=== PATIENT | female | born 1960 | race Caucasian/White ===

== ENCOUNTER 2021-11-06 16:54 | Inpatient (IN) | payer OTHER ==
[~2021-11-06] VITALS: Ht 175.3 cm; Wt 65.8 kg
--- NOTE | 2021-11-06 16:59 | NUR ---
BIBA to bed 08
[2021-11-06] MEDS ORDERED: KETOROLAC 30 MG/ML VIAL IVP ONE (17:00)
[2021-11-06 17:01] VITALS: BP 148/84
--- NOTE | 2021-11-06 17:10 | NUR ---
PATIENT WAS ASSISTED TO THE RESTROOM VIA WHEELCHAIR. URINE SAMPLE OBTAINED.
--- NOTE | 2021-11-06 17:21 | NUR ---
PATIENT TAKEN TO IMAGING VIA WHEELCHAIR
--- NOTE | 2021-11-06 18:05 | NUR ---
Unable to obtain IV access; [address] Smith made aware and Toradol IM order to be placed.
[2021-11-06] MEDS ORDERED: KETOROLAC 60 MG/2 ML VIAL IM ONE (18:10)
--- NOTE | 2021-11-06 18:26 | NUR ---
61 Y/O FEMALE BIBA FROM [facility] C/O ABMONIAL PAIN X1 WEEK. PATIENT HAS A 6/10 SORENESS PAIN TO ABDOMEN PAIN TO RLQ. PATIENT DENIES NAUSEA AND VOMITING. PATIENT IS ALSO COMPLAINING OF SWELLING TO STOMACH. PATIENT STATES "HER LAST BOWEL MOVEMENT WAS 2-3 DAYS AGO." MEDICAL HISTORY: CVA 5 YEARS AGO, DM2, LIVER CIRRHOSIS, HLD, HTN MEDICATIONS: SEE LIST NKDA
[2021-11-06 18:31] LABS: BASOPHILS # (AUTO) 0.1 K/uL (0.00-0.22); BASOPHILS % (AUTO) 0.8 % (0.0-2.0); EOSINOPHILS # (AUTO) 0.1 K/uL (0-0.4); EOSINOPHILS % (AUTO) 1.7 % (0.0-4.0); HEMATOCRIT 39.7 % (36-48); HEMOGLOBIN 13.4 g/dL (12.0-16.0); LYMPHOCYTES # (AUTO) 1.6 K/uL (2.5-16.5); LYMPHOCYTES % (AUTO) 24.1 % (20.5-51.1); MEAN CORPUSCULAR HEMOGLOBIN 31 pg (27-31); MEAN CORPUSCULAR HGB CONC 34 g/dL (33-37); MEAN CORPUSCULAR VOLUME 90.9 fL (80-94); MONOCYTES # (AUTO) 0.5 K/uL (0.8-1.0); NEUTROPHILS # (AUTO) 4.3 K/uL (1.8-7.7); NEUTROPHILS % (AUTO) 65.4 % (42.2-75.2); PLATELET COUNT (AUTO) 122 K/uL (140-450); RED BLOOD CELL COUNT(AUTO) 4.37 MIL/uL (4.20-5.40); RED CELL DISTRIBUTION WIDTH 13.7 % (11.6-13.7); WHITE BLOOD COUNT (AUTO) 6.6 K/uL (4.8-10.8)
--- NOTE | 2021-11-06 18:40 | NUR ---
SHILPI SPECIMEN OBTAINED, WALKED TO LAB. HANDED TO PARISH, CPT
[2021-11-06 18:41] LABS: ALBUMIN 3.1 g/dL (3.4-5.0); ANION GAP 10.4 (8-16); CARBON DIOXIDE 28.2 mmol/L (21-32); CREATININE 1.6 mg/dL (0.6-1.3); POTASSIUM 4.6 mmol/L (3.5-5.1); TOTAL BILIRUBIN 0.3 mg/dL (0.0-1.0)
[2021-11-06] MEDS ORDERED: AMIT25TA40 PO (18:50)
[2021-11-06] MEDS ORDERED: METO25TA PO (18:50)
[2021-11-06] MEDS ORDERED: LANTUS SUBQ (18:50)
[2021-11-06] MEDS ORDERED: TRAM50TA3 PO (18:50)
[2021-11-06] MEDS ORDERED: MIRABULK PO (18:50)
[2021-11-06] MEDS ORDERED: ATOR40TA PO (18:50)
[2021-11-06] MEDS ORDERED: TEMA15CA24 PO (18:50)
[2021-11-06] MEDS ORDERED: DIT5 PO (18:50)
[2021-11-06] MEDS ORDERED: DOCU-299 PO (18:50)
[2021-11-06] MEDS ORDERED: GABA400C PO (18:50)
[2021-11-06] MEDS ORDERED: [UNRECOGNIZED DRUG - CODE] RC (18:50)
[2021-11-06] MEDS ORDERED: ACET-10509 PO (18:50)
[2021-11-06] MEDS ORDERED: LACT10SO11 (18:50)
[2021-11-06] MEDS ORDERED: BACL10TA4 PO (18:50)
[2021-11-06] MEDS ORDERED: SENN-72 PO (18:52)
[2021-11-06] MEDS ORDERED: ASPI-1822 PO (18:52)
[2021-11-06] MEDS ORDERED: BISA-218 RC (18:52)
--- NOTE | 2021-11-06 19:22 | NUR ---
Pt report given to RASHARD LACY. Transfer of care at this time.
--- NOTE | 2021-11-06 19:22 | NUR ---
Texted PICC RN [phone] regarding PICC placement for pt. Texted back, stated that they do not have PICC RN for this evening, so PICC insertion will be delayed until tomorrow morning. Will let technical marketing engineer know
--- NOTE | 2021-11-06 19:34 | NUR ---
VERBAL ORDER FOR PICC LINE PLACEMENT BY DR. PEREZ. NOTIFIED DEV DOWNS SUP.
--- NOTE | 2021-11-06 20:18 | NUR ---
CONSENT FOR ULTRA SOUND SIGNED. PT UNABLE TO WRITE A CLEAR SIGNATURE BUT ACKNOWLEDGED AND MARKED. WITNESS SIGNATURE OBTAINED
--- NOTE | 2021-11-06 20:37 | NUR ---
Patient will be admitted to care of DR. RASMUSSEN. Admited to MED- SURG. Will go to room 121 B. Belongings list completed. Report to [place].
[2021-11-06] MEDS ORDERED: KCL 20 MEQ/WATER INJ PREMIX 200 ML IV PRN (20:40)
[2021-11-06] MEDS ORDERED: MAG SULF 2000 MG/WATER PREMIX 50 ML IV PRN (20:40)
[2021-11-06] MEDS ORDERED: HYDROcodone/APAP 5/325 MG 1 TAB TAB PO PRN (20:40)
[2021-11-06] MEDS ORDERED: ACETAMINOPHEN 325 MG TAB PO PRN (20:40)
[2021-11-06] MEDS ORDERED: ONDANSETRON 4 MG/2 ML VIAL IVP PRN (20:40)
[2021-11-06] MEDS ORDERED: MAGNESIUM OXIDE 400 MG TAB PO PRN (20:40)
[2021-11-06] MEDS ORDERED: ZOLPIDEM 5 MG TAB PO PRN (20:40)
[2021-11-06] MEDS ORDERED: POTASSIUM CHLORIDE 10 MEQ TABER PO PRN (20:40)
[2021-11-06] MEDS ORDERED: MORPHINE SULFATE 4 MG/ML SYR IVP PRN (20:40)
[2021-11-06] MEDS ORDERED: LORazepam 1 MG TAB PO PRN (20:40)
[2021-11-06 21:30] VITALS: BP 124/72
[2021-11-06] MEDS: NACL 0.9% 1,000 ML IV SCH (21:30)
--- NOTE | 2021-11-06 21:30 | NUR ---
RECEIVED HAND OFF BEDSIDE REPORT FROM ER RASHARD LACY ON NEW ADMISSION. ARRIVED ON MST VIA GURNEY TRANSFERRED TO W/C THEN TO BED WITH WALKER AND STANDBY ASSIST OF TWO. PT HAS GENERALIZED WEAKNESS AND VISION, MEMORY AND MUSCULOSKELETAL WEAKNESSES RESIDUAL FROM STROKE 5 YRS AGO. VSS: BP- 124/72, P-88, RR-18, T-97.7, [id number]% ON ROOM AIR. ALL SAFETY MEASURES IN PLACE. CALL LIGHT WITHIN REACH. WILL CONTINUE TO MONITOR
[2021-11-07] VITALS: BP 115/75
--- NOTE | 2021-11-07 01:30 | NUR ---
FREQ ROUNDS. PT SLEEPING RR EVEN AND UNLABORED WITH EQUAL CHEST RISE. SCD'S ON ORDERED.NO C/O PAIN. CALL LIGHT WITHIN REACH WILL CONTINUE TO MONITOR.
[2021-11-07 04:00] VITALS: BP 98/67
--- NOTE | 2021-11-07 04:20 | NUR ---
FREQ ROUNDS. PT SLEEPING . AWAKENED TO NAME VSS: BP-98/67, P-72, RR-18, T-97.9, O4YFS=66% 0N ROOM AIR. SCD'S ON PT'S LOWER EXTREMITIES ORDERED. PT TRANSFERRED TO BEDSIDE COMMODE BUT COULD NOT URINATE. C/O 12/11 RLQ PAIN WITH SWELLING. MEDICATED WITH 1 TAB NORCO5/325MG. PT SELF TURNS IN BED. HAS MULTIPLE OLD LOWER EXTREMITY SCARS. DOZING. ALL SAFETY MEASURES IN PLACE. CALL LIGHT WITHIN REACH. WILL CONTINUE TO MONITOR.
[2021-11-07 06:03] LABS: BASOPHILS % (AUTO) 0.8 % (0.0-2.0); EOSINOPHILS # (AUTO) 0.1 K/uL (0-0.4); EOSINOPHILS % (AUTO) 2.2 % (0.0-4.0); HEMATOCRIT 37.3 % (36-48); HEMOGLOBIN 12.7 g/dL (12.0-16.0); LYMPHOCYTES # (AUTO) 1.8 K/uL (2.5-16.5); LYMPHOCYTES % (AUTO) 34.2 % (20.5-51.1); MEAN CORPUSCULAR HEMOGLOBIN 31 pg (27-31); MEAN CORPUSCULAR HGB CONC 34 g/dL (33-37); MONOCYTES # (AUTO) 0.5 K/uL (0.8-1.0); MONOCYTES % (AUTO) 9.6 % (1.7-9.3); NEUTROPHILS # (AUTO) 2.9 K/uL (1.8-7.7); NEUTROPHILS % (AUTO) 53.2 % (42.2-75.2); PLATELET COUNT (AUTO) 105 K/uL (140-450); RED BLOOD CELL COUNT(AUTO) 4.15 MIL/uL (4.20-5.40); RED CELL DISTRIBUTION WIDTH 13.3 % (11.6-13.7); WHITE BLOOD COUNT (AUTO) 5.4 K/uL (4.8-10.8)
[2021-11-07 06:09] LABS: ALBUMIN 2.8 g/dL (3.4-5.0); ANION GAP 7.4 (8-16); CARBON DIOXIDE 26.6 mmol/L (21-32); CREATININE 1.8 mg/dL (0.6-1.3); TOTAL BILIRUBIN 0.4 mg/dL (0.0-1.0)
--- NOTE | 2021-11-07 06:20 | NUR ---
FREQ ROUNDS. CHECKED PT IS STABLE AND DOZING IN BED.RR EVEN AND UNLABORED WITH EQUAL CHEST RISE.ALL SAFETY MEASURES IN PLACE. BED LOW AND LOCKED POSITION. CALL LIGHT WITHIN REACH. WILL CONTINUE TO MONITOR.
--- NOTE | 2021-11-07 06:30 | NUR ---
The patient's care was reviewed and supervised by Clotilde Clark RN.
--- NOTE | 2021-11-07 07:20 | NUR ---
RECEIVED PATIENT LAYING IN BED AWAKE ALERT AND ORIENTED X4. PATIENT CAME IN WITH A CHIEF COMPLAINT OF ABD PAIN FOR 1 WEEK PATIENT DIAGNOSED WITH PANCREATITIS. S1 AND S2 HEARD UPON AUSCULTATION. LUNGS CLEAR, BOWEL SOUNDS ACTIVE. ABDOMEN WITH SCARED TISSUE, DISTENDED AND BOARD LIKE. PATIENT WITH HISTORY OF CHRONIC CONSTIPATION.PATIENT REPORTS PAIN UPON PALPATION OF RIGHT LOWER QUADRANT. PATIENT WITH GENERALIZE WEAKNESS. PATIENT IS UNABLE TO AMBULATE AND ATROPHY NOTED IN BOTH LEGS. PATIENT WITH BEDSIDE COMMODE. SKIN WARM DRY AND INTACT. WILL CONTINUE TO MONITOR. CALL LIGHT WITHIN REACH BED AT LOWEST POSITION AND LOCKED.
--- NOTE | 2021-11-07 07:30 | NUR ---
ENDORSED REPORT TO AM RN FOR CONTINUITY OF CARE. PT STABLE.
[2021-11-07 08:00] VITALS: BP 100/72
[2021-11-07] MEDS: NACL 0.9% 1,000 ML IV SCH ×3 (09:10→22:29)
[2021-11-07] MEDS: DOCUSATE SODIUM 100 MG GELCAP PO SCH (09:14)
[2021-11-07] MEDS: ENOXAPARIN 40 MG/0.4 ML SYR SUBQ SCH (09:14)
[2021-11-07 12:00] VITALS: BP 101/71
--- NOTE | 2021-11-07 13:00 | NUR ---
PATIENT REPORTS FEELING DRUNK, MD NOTIFIED AND ORDER PLACED FOR AMMONIA LEVELS.
--- NOTE | 2021-11-07 14:00 | NUR ---
PICC LINE PLACEMENT COMPLETE
[2021-11-07 16:00] VITALS: BP 110/70
--- NOTE | 2021-11-07 17:00 | NUR ---
PATIENT REFUSE IV, STATES IT WILL MAKE HER PEE MORE. EDUCATED PATIENT ON THE IMPORTANCE OF IV FLUIDS. PATIENT STILL DENIED.
--- NOTE | 2021-11-07 19:05 | NUR ---
RECEIVED BESIDE REPORT FOR CONTINUITY OF PT CARE
[2021-11-07 20:00] VITALS: BP 123/85
--- NOTE | 2021-11-07 20:00 | NUR ---
PT REFUSED IVF HYDRATION. PICC LINE ON DOUBLE LUMEN ON RIGHT UPPER ARM INTACT AND PATENT.
--- NOTE | 2021-11-07 22:29 | NUR ---
PT REFUSED IV FLUID, NOT GIVEN
--- NOTE | 2021-11-07 23:00 | NUR ---
PT COMPLAINT OF UNABLE TO SLEEP AND REQUEST FOR SLEEPING PILL. AMBIEN ADMINSTERED ORDER.
[2021-11-08] VITALS: BP 119/86
[2021-11-08 04:00] VITALS: BP 115/78
--- NOTE | 2021-11-08 05:00 | NUR ---
PATIENT IS ON STABLE CONDITION AND ASLEEP.
--- NOTE | 2021-11-08 07:17 | NUR ---
PATIENT IS ON STABLE CONDITION. ENDORSED TO DAY SHIFT NURSE FOR CONTINUITY OF PT CARE.
[2021-11-08 08:00] VITALS: BP 116/80
--- NOTE | 2021-11-08 08:11 | NUR ---
PATIENT HAS BEEN SCREENED AND CATEGORIZED LOW NUTRITION RISK. PATIENT WILL BE SEEN WITHIN 7 DAYS OF ADMISSION. 11/08/21-11/14/[address]
[2021-11-08] MEDS: DOCUSATE SODIUM 100 MG GELCAP PO SCH (08:22)
[2021-11-08] MEDS: ENOXAPARIN 40 MG/0.4 ML SYR SUBQ SCH (08:24)
[2021-11-08 09:46] LABS: BASOPHILS % (AUTO) 0.5 % (0.0-2.0); EOSINOPHILS # (AUTO) 0.1 K/uL (0-0.4); EOSINOPHILS % (AUTO) 1.1 % (0.0-4.0); HEMATOCRIT 38.2 % (36-48); HEMOGLOBIN 12.9 g/dL (12.0-16.0); LYMPHOCYTES # (AUTO) 1.3 K/uL (2.5-16.5); LYMPHOCYTES % (AUTO) 25.7 % (20.5-51.1); MEAN CORPUSCULAR HEMOGLOBIN 31 pg (27-31); MEAN CORPUSCULAR HGB CONC 34 g/dL (33-37); MEAN CORPUSCULAR VOLUME 90.3 fL (80-94); MONOCYTES # (AUTO) 0.4 K/uL (0.8-1.0); MONOCYTES % (AUTO) 7.7 % (1.7-9.3); NEUTROPHILS # (AUTO) 3.3 K/uL (1.8-7.7); PLATELET COUNT (AUTO) 112 K/uL (140-450); RED BLOOD CELL COUNT(AUTO) 4.23 MIL/uL (4.20-5.40); RED CELL DISTRIBUTION WIDTH 13.3 % (11.6-13.7); WHITE BLOOD COUNT (AUTO) 5.1 K/uL (4.8-10.8)
[2021-11-08 10:08] LABS: ALBUMIN 2.9 g/dL (3.4-5.0); ANION GAP 13.8 (8-16); CARBON DIOXIDE 23.3 mmol/L (21-32); CREATININE 1.5 mg/dL (0.6-1.3); POTASSIUM 4.1 mmol/L (3.5-5.1); TOTAL BILIRUBIN 0.5 mg/dL (0.0-1.0)
[2021-11-08] MEDS: NACL 0.9% 1,000 ML IV SCH (10:10)
[2021-11-08] MEDS ORDERED: ACET-9525 PO (10:56)
[2021-11-08 11:47] VITALS: BP 116/80
[2021-11-08 16:00] VITALS: BP 115/91
--- NOTE | 2021-11-08 21:15 | NUR ---
[facility] (PH# [phone] WITH BENOIT) CALLED WILL TRANSPORT PATIENT TO [facility] AT [address] [place] [address].
--- NOTE | 2021-11-08 22:08 | NUR ---
[facility] TRANSPORTED PATIENT AND LEFT AT THIS HOUR WITH 2 ESCORTED STAFF (BENOIT & DESIRAE) TO [facility]. CALLED [facility] , SPOKE WITH ROMINA WHO RECEIVED THE CALL ([facility] PH# [phone]).
--- NOTE | 2021-11-08 22:08 | NUR ---
PT TRANSPORTED VIA GURNEY, AWAKE, ALERT AND VERBALLY RESPONSIVE. ENDORSED PT & PAPERWORKS TO TRANSPORATION STAFF.
== END 2021-11-08 22:05 | DRG 282 ==
LOC: MED 16:54 → MTU 18:54
PROVIDERS: ADMIT Internal Medicine; ATTEND Internal Medicine
DX: K85.90 Acute pancreatitis without necrosis or infection, unspecified (principal); N17.9 Acute kidney failure, unspecified; E44.0 Moderate protein-calorie malnutrition; E87.1 Hypo-osmolality and hyponatremia; R53.81 Other malaise; E11.9 Type 2 diabetes mellitus without complications; Z20.822 Contact with and (suspected) exposure to COVID-19; Z79.82 Long term (current) use of aspirin; Z82.49 Family history of ischemic heart disease and other diseases of the circulatory system; Z79.899 Other long term (current) drug therapy; Z68.21 Body mass index [BMI] 21.0-21.9, adult
CPT/HCPCS: 36415; 71045; 80053; 82140; 82948; 83690; 85025; 87081; 93005; 96372; 99285; J1650; J1885; Q0092

== ENCOUNTER 2022-12-05 15:33 | Emergency (ER) | payer OTHER ==
[~2022-12-05] VITALS: Ht 175.3 cm; Wt 81.6 kg
[~2022-12-05 15:33] MED LIST: ACET-10509 PO; ACET-9525 PO; AMIT25TA40 PO; ASPI-1822 PO; ATOR40TA PO; BACL10TA4 PO; BISA-218 RC; DOCU-299 PO; GABA400C PO; LACT10SO11; LANTUS SUBQ; METO25TA PO; MIRABULK PO; OXYB5TAB44 PO; SENN-72 PO; TEMA15CA24 PO; TRAM50TA3 PO; [UNRECOGNIZED DRUG - CODE] RC
[2022-12-05 15:41] VITALS: BP 134/70
--- NOTE | 2022-12-05 15:41 | NUR ---
62YO F BIBA FROM [facility] C/O RT HAND DEFICIT, SWELLING X 3 DAYS. PT WAS SEEN AT [facility] DECEMBER 02 2022 - CVA. VISUAL NON PITTING REDENED EDEMA TO RT HAND, FLACCID, TENDER TO TOUCH, FULL ROM, SAFETY MAINTAINED.
--- NOTE | 2022-12-05 17:23 | NUR ---
MD PANTOJA AT BEDSIDE FOR EVALUATION
--- NOTE | 2022-12-05 17:41 | NUR ---
xray at bedside
[2022-12-05 18:39] LABS: BASOPHILS % (AUTO) 0.1 % (0.0-2.0); EOSINOPHILS # (AUTO) 0.1 K/uL (0-0.4); EOSINOPHILS % (AUTO) 2.8 % (0.0-4.0); HEMATOCRIT 32.7 % (36-48); HEMOGLOBIN 11.3 g/dL (12.0-16.0); LYMPHOCYTES # (AUTO) 1.2 K/uL (2.5-16.5); LYMPHOCYTES % (AUTO) 26.1 % (20.5-51.1); MEAN CORPUSCULAR HEMOGLOBIN 32 pg (27-31); MEAN CORPUSCULAR HGB CONC 35 g/dL (33-37); MEAN CORPUSCULAR VOLUME 92.4 fL (80-94); MONOCYTES # (AUTO) 0.5 K/uL (0.8-1.0); NEUTROPHILS # (AUTO) 2.6 K/uL (1.8-7.7); PLATELET COUNT (AUTO) 142 K/uL (140-450); RED BLOOD CELL COUNT(AUTO) 3.54 MIL/uL (4.20-5.40); RED CELL DISTRIBUTION WIDTH 13.6 % (11.6-13.7); WHITE BLOOD COUNT (AUTO) 4.4 K/uL (4.8-10.8)
--- NOTE | 2022-12-05 19:11 | NUR ---
S/W ALTON LEWIS ELECTRIC SYSTEM OPERATOR 7-30-8PM
--- NOTE | 2022-12-05 19:22 | NUR ---
[facility] CONTACTED, MADE AWARE OF D/C AND TRANSPORTATION ETA, S/W SAGE WETZEL.
--- NOTE | 2022-12-05 19:25 | NUR ---
REPORT GIVEN TO HARITHA IRWIN. ALL QUESTIONS ANSWER.
[2022-12-05 19:29] LABS: ALBUMIN 2.9 g/dL (3.4-5.0); ASPARTATE AMINOTRANSFERASE 73 U/L (15-37); CARBON DIOXIDE 26.4 mmol/L (21-32); CHLORIDE 96 mmol/L (98-107); CREATININE 1.3 mg/dL (0.6-1.3); GFR ARICAN-AMERICAN 54 mL/min (>90); GLUCOSE 195 mg/dL (74-106); POTASSIUM 4.4 mmol/L (3.5-5.1); SODIUM SERUM 127 mmol/L (136-145); THYROID STIMULATING HORMONE 1.53 uIU/mL (0.34-3.74); TOTAL BILIRUBIN 0.4 mg/dL (0.0-1.0); UREA NITROGEN, BLOOD 26 mg/dL (7-18)
--- NOTE | 2022-12-05 19:45 | NUR ---
ALEX AT BEDSIDE FOR TX
[2022-12-05 19:50] VITALS: BP 130/61
--- NOTE | 2022-12-05 19:52 | NUR ---
Patient discharged with v/s stable. Written and verbal after care instructions given and explained. Patient verbalized understanding. Ambulance Transport with to retirement. All questions addressed prior to discharge. Advised to follow up with PMD. PT LEFT WITH [facility]
== END 2022-12-05 19:52 | disposition home or self-care (01) ==
LOC: MED 15:33
DX: R53.1 Weakness (principal); E87.1 Hypo-osmolality and hyponatremia; E87.6 Hypokalemia; Z20.822 Contact with and (suspected) exposure to COVID-19; Z86.73 Personal history of transient ischemic attack (TIA), and cerebral infarction without residual deficits; E11.9 Type 2 diabetes mellitus without complications; I10 Essential (primary) hypertension; Z79.899 Other long term (current) drug therapy; Z79.4 Long term (current) use of insulin; Z79.82 Long term (current) use of aspirin
CPT/HCPCS: 36415; 70450; 71045; 80053; 84443; 84484; 85025; 87426; 93005; 99291; Q0092